=== PATIENT | female | born 1985 | race American Indian/Alaskan Native ===

== ENCOUNTER 2018-01-06 12:15 | Emergency (ER) | payer MEDICAID ==
[2018-01-06 13:15] LABS: Basophils # (Auto) 0.1 K/mm3 (0.0-0.1); Eosinophils # (Auto) 0.1 K/mm3 (0.0-0.4); Eosinophils % (Auto) 0.8 % (0.0-4.3); Monocytes # (Auto) 0.4 K/mm3 (0.0-0.8); Monocytes % (Auto) 3.7 % (0.0-7.3)
[2018-01-06 13:36] LABS: Basophils % (Auto) 0.9 % (0.0-1.8); Hematocrit 25.3 % (30.3-42.9); Hemoglobin 7.4 gm/dl (10.1-14.3); Lymphocytes # (Auto) 1.7 K/mm3 (1.2-5.4); Lymphocytes % (Auto) 17.5 % (13.4-35.0); Mean Corpuscular HGB Conc 29 % (30-34); Mean Corpuscular Hemoglobin 18 pg (28-32); Mean Corpuscular Volume 61 fl (79-97); Platelet Count 532 K/mm3 (140-440); Red Blood Count 4.15 M/mm3 (3.65-5.03); Red Cell Distribution Width 22.1 % (13.2-15.2)
[2018-01-06 13:45] LABS: Alanine Aminotransferase 7 units/L (7-56); Albumin 3.7 g/dL (3.9-5); BUN/Creatinine Ratio 13; Blood Urea Nitrogen 5 mg/dL (7-17); Calcium 8.4 mg/dL (8.4-10.2); Hemolysis Index 2
[2018-01-06] MEDS ORDERED: NACL 0.9% 500 ML 500 ML IV ONE (14:18)
--- NOTE | 2018-01-06 14:21 | Emergency Department Report ---
Chief Complaint: Weakness Stated Complaint: REALLY COLD Time Seen by Provider: 01/06/18 14:07 - HPI History of Present Illness: 32-year-old female presents to the emergency department with complaint of bad abdominal cramping, some generalized fatigue and weakness and some nausea with vomiting. Patient is currently on her menstrual cycle but says that she does not normally have this kind of response and/or symptoms. The vaginal bleeding has slowed up but was quite heavy for a few days. Patient presents with blood work that shows that she is anemic. She says that she recently was diagnosed with anemia at [facility] about one week ago and her hemoglobin at that time was 7.6. She does not have a primary care physician or RETURN TO FACTORY CLERK. - ROS Review of Systems: Positive for nausea, vomiting, abdominal cramping, generalized weakness and/or fatigue Negative for fever, dysuria, chest pain, shortness of breath - Exam Vital Signs: Vital Signs 01/06/18 12:23 Temperature 98.1 F Pulse Rate 82 Respiratory 16 Rate Blood Pressure 136/82 O2 Sat by Pulse 100 Oximetry Physical Exam: Heart and lungs sounds are normal to auscultation. Patient is awake and alert in no acute distress. MSE screening note: Focused history and physical exam performed. Due to findings the following was ordered: Patient will have 1 unit of packed red blood cells transfused. She is already taking iron supplements and hemoglobin has continued to drop and the patient sounds like she has symptomatic anemia. ED Medical Decision Making - Lab Data Result diagrams: 01/06/18 13:02 01/06/18 13:02 ED Disposition for MSE Condition: Stable Referrals: PRIMARY MD JOHANNE [Primary Care Provider] - 3-5 Days
[2018-01-06] MEDS ORDERED: NORCO 5/325 PO ONE (17:34)
[2018-01-06] MEDS ORDERED: NACL 0.9% 500 ML 500 ML ONE (17:35)
--- NOTE | 2018-01-06 22:41 | Emergency Department Report ---
HPI - General Chief Complaint: Weakness Time Seen by Provider: 01/06/18 14:07 - HPI HPI: The patient is a 32-year-old female who presents for evaluation of abdominal pain. The patient reports lower abdominal pain for the past week, crampy in quality, mild in severity, constant since onset, and associated with waxing and waning vaginal bleeding. She shares that she has a history of anemia secondary to chronic heavy vaginal bleeding. The patient denies fever, chills, night sweats, Chest pain, dyspnea, syncope, paresthesias, diarrhea, blood in the stool , dark tarry stool, dysuria, hematuria, flank pain, genital discharge, inability to pass flatus. ED Past Medical Hx - Past Medical History Previous Medical History?: No - Surgical History Past Surgical History?: Yes Additional Surgical History: c section - Social History Smoking Status: Never Smoker Substance Use Type: None - Medications Home Medications: Home Medications Medication Instructions Recorded Confirmed Last Taken Type Ferrous Sulfate, Dried [Slow 160 mg PO QDAY #20 tablet.er 01/06/18 Unknown Rx Release Iron 160 Mg tab] medroxyPROGESTERone ACETATE 5 mg PO QDAY #5 tablet 01/06/18 Unknown Rx [Provera] ED Review of Systems ROS: Stated complaint: REALLY COLD Other details as noted in HPI Constitutional: denies: fever ENT: denies: throat or neck pain Respiratory: denies: cough, shortness of breath Cardiovascular: denies: chest pain Endocrine: denies unexplained weight loss or gain Gastrointestinal: reports abdominal pain denies: nausea Genitourinary: reports vag bleeding denies: dysuria Musculoskeletal: denies: leg swelling Skin: denies: rash Neurological: denies: headache Hematological/Lymphatic: denies: easy bleeding or easy bruising Psych: denies sadness or hopelessness Physical Exam - Physical Exam Vital Signs: Vital Signs 01/06/18 01/06/18 12:23 17:36 Temperature 98.1 F 98.3 F Pulse Rate 82 81 Respiratory 16 16 Rate Blood Pressure 136/82 Blood Pressure 108/67 [Left] O2 Sat by Pulse 100 100 Oximetry Physical Exam: General: well-nourished, well-developed, no acute distress Head: Normocephalic, atraumatic Eyes: normal sclera ENT: Mucous membranes are pale and dry Neck: No neck stiffness, no cervical adenopathy Respiratory: Breath sounds equal bilaterally, no wheezing, rales, or rhonchi Cardio: S1 and S2 present, no murmurs, rubs, gallops, capillary refill is delayed Abdomen: Normoactive bowel sounds, soft abdomen, suprapubic tenderness present, no rigidity, no guarding or rebound tenderness Chest WALL/Back: No tenderness to palpation of the chest wall, no CVA tenderness with percussion Musc: No pitting edema Skin: No rash Neuro: no facial drooping, normal speech Psych: Normal affect ED Course Vital Signs 01/06/18 01/06/18 12:23 17:36 Temperature 98.1 F 98.3 F Pulse Rate 82 81 Respiratory 16 16 Rate Blood Pressure 136/82 Blood Pressure 108/67 [Left] O2 Sat by Pulse 100 100 Oximetry ED Medical Decision Making - Lab Data Result diagrams: 01/06/18 13:02 01/06/18 13:02 - Medical Decision Making The patient was seen and examined by myself. The patient is placed on a manager recovery and continuous pulse ox. On initial evaluation, the patient was found to be in no distress. Evaluation orders were placed. The patient is given pain medicine. Lab results reveal low hemoglobin and hematocrit, hgb 7.4 , consistent with anemia, and otherwise labs were grossly unremarkable including normal platelet level. The patient is given 1 unit of PRBCs for treatment of her symptoms and anemia. The patient was reevaluated and reported that their symptoms were markedly improved. The patient is stable for discharge with outpatient follow-up. The patient is given follow-up and return instructions. The patient expressed understanding and agreed with the plan. The patient is discharged in stable condition. Critical care attestation.: If time is entered above; I have spent that time in minutes in the direct care of this critically ill patient, excluding procedure time. ED Disposition Clinical Impression: Severe anemia, Anemia requiring transfusions, Vaginal bleeding, Suprapubic pain , acute Disposition: DC-01 TO HOME OR SELFCARE Is pt being admited?: No Does the pt Need Aspirin: No Condition: Stable Instructions: Dysfunctional Uterine Bleeding (ED), Acute Abdominal Pain (ED), Menorrhagia (ED) Prescriptions: Ferrous Sulfate, Dried [Slow Release Iron 160 Mg tab] 160 mg PO QDAY #20 tablet.er medroxyPROGESTERone ACETATE [Provera] 5 mg PO QDAY #5 tablet Referrals: [facility] [Provider Group] - 3-5 Days Time of Disposition: 22:09
[2018-01-06 22:55] VITALS: BP 110/56
== END 2018-01-06 22:50 | disposition home or self-care (01) ==
LOC: ED 12:15
DX: N93.8 Other specified abnormal uterine and vaginal bleeding (principal); D64.9 Anemia, unspecified
CPT/HCPCS: 36415; 80053; 84703; 85025; 86850; 86900; 86901; 86920; 99283; J7040; P9016